=== PATIENT | female | born 1940 | race Caucasian/White ===

== ENCOUNTER 2018-06-25 07:32 | Emergency (ER) | payer MEDICARE ==
[~2018-06-25] VITALS: Ht 160 cm; Wt 54.4 kg
[2018-06-25 07:40] VITALS: BP_SYST 140
[2018-06-25] MEDS ORDERED: FLUT16SP16 NS (08:00)
[2018-06-25] MEDS ORDERED: ASA81 PO (08:07)
[2018-06-25] MEDS ORDERED: HYDR200T38 PO (08:07)
[2018-06-25] MEDS ORDERED: ALBMDI INH (08:07)
[2018-06-25] MEDS ORDERED: TEMA15CA5 PO (08:07)
[2018-06-25] MEDS ORDERED: AMLO2.5T2 PO (08:07)
[2018-06-25] MEDS ORDERED: LOSA100T3 PO (08:07)
[2018-06-25] MEDS ORDERED: LORA-259 PO (08:07)
[2018-06-25] MEDS ORDERED: ATOR20TA64 PO (08:07)
[2018-06-25] MEDS ORDERED: AZIT250T PO (08:07)
== END 2018-06-25 08:45 | disposition home or self-care (01) ==
LOC: SED 07:32
DX: J40 Bronchitis, not specified as acute or chronic (principal); Z79.899 Other long term (current) drug therapy
CPT/HCPCS: 71045; 99283

== ENCOUNTER 2018-06-27 20:37 | Emergency (ER) | payer MEDICARE ==
[~2018-06-27] VITALS: Ht 165.1 cm; Wt 54.4 kg
[~2018-06-27 20:37] MED LIST: ALBMDI INH; AMLO2.5T2 PO; ASA81 PO; ATOR20TA64 PO; AZIT250T PO; FLUT16SP16 NS; HYDR200T38 PO; LORA-259 PO; LOSA100T3 PO; TEMA15CA5 PO
[2018-06-27 20:46] VITALS: BP_SYST 130
[2018-06-27] MEDS ORDERED: MORPHINE 2 MG/ML INJ. SYRINGE IVP ONE (21:15)
[2018-06-27] MEDS ORDERED: ONDANSETRON HCL 4 MG/2 ML VIAL IVP ONE (21:15)
[2018-06-27] MEDS ORDERED: NACL 0.9% 1,000 ML IV ONE (21:15)
[2018-06-27 22:00] LABS: BASOPHILS % (AUTO) 0.5 % (0.0-2.0); EOSINOPHILS # (AUTO) 0.1 K/uL (0.0-0.4); EOSINOPHILS % (AUTO) 0.9 % (0.0-4.0); HEMATOCRIT 41.3 % (36-48); HEMOGLOBIN 13.9 g/dL (12.0-16.0); LYMPHOCYTES # (AUTO) 0.8 K/uL (1.0-5.5); LYMPHOCYTES % (AUTO) 9.9 % (20.5-51.5); MEAN CORPUSCULAR HEMOGLOBIN 32 pg (27-31); MEAN CORPUSCULAR HGB CONC 34 % (32-36); MEAN CORPUSCULAR VOLUME 95 fL (79.0-98.0); MONOCYTES # (AUTO) 0.9 K/uL (0.0-1.0); MONOCYTES % (AUTO) 11.3 % (1.7-9.3); NEUTROPHILS # (AUTO) 5.9 K/uL (1.8-7.7); NEUTROPHILS % (AUTO) 77.4 % (40.0-70.0); PLATELET COUNT (AUTO) 202 K/uL (130-430); RED BLOOD CELL COUNT(AUTO) 4.34 MIL/uL (4.2-6.2); RED CELL DISTRIBUTION WIDTH 12.5 % (9.0-15.0); WHITE BLOOD COUNT (AUTO) 7.7 K/uL (4.8-10.8)
[2018-06-27 22:09] LABS: ANION GAP 5 (5-15); CHLORIDE 103 mmol/L (98-107); CREATININE 0.88 mg/dL (0.55-1.30); GLUCOSE 119 mg/dL (70-99); POTASSIUM 4.7 mmol/L (3.5-5.1); SODIUM SERUM 138 mmol/L (136-145); UREA NITROGEN, BLOOD 23 mg/dL (8-21)
[2018-06-27 22:15] LABS: ALANINE AMINOTRANSFERASE 28 U/L (12-78); ALBUMIN 3.4 g/dL (3.4-4.8); ASPARTATE AMINOTRANSFERASE 18 U/L (10-37); TOTAL BILIRUBIN 0.3 mg/dL (0.0-1.0)
[2018-06-27 22:21] LABS: CALCIUM 8.9 mg/dL (8.4-11.0)
[2018-06-27 23:04] LABS: BILIRUBIN,URINE NEGATIVE (NEGATIVE); BLOOD, URINE TRACE (NEGATIVE); CLARITY/URINE CLEAR (CLEAR); COLOR,URINE YELLOW (YELLOW); GLUCOSE,URINE NEGATIVE (NEGATIVE); KETONES,URINE NEGATIVE (NEGATIVE); LEUKOCYTE ESTERASE ,URINE TRACE (NEGATIVE); NITRITE, URINE NEGATIVE (NEGATIVE); PROTEIN URINE NEGATIVE (NEGATIVE); UROBILINOGEN,URINE 0.2 (0.2-1.0)
[2018-06-27 23:09] LABS: BACTERIA,URINE FEW /HPF (None Seen); RBC,URINE 0-3 /HPF (0-3); WBC,URINE 0-3 /HPF (0-3)
[2018-06-28 00:10] VITALS: BP_SYST 130
== END 2018-06-28 00:10 | disposition home or self-care (01) ==
LOC: SED 20:37
DX: K52.9 Noninfective gastroenteritis and colitis, unspecified (principal); J40 Bronchitis, not specified as acute or chronic; J31.0 Chronic rhinitis; R11.2 Nausea with vomiting, unspecified; R42 Dizziness and giddiness; R03.0 Elevated blood-pressure reading, without diagnosis of hypertension; Z79.82 Long term (current) use of aspirin; Z79.899 Other long term (current) drug therapy
CPT/HCPCS: 36415; 74176; 80053; 81000; 83605; 85025; 87040; 96361; 96374; 96375; 99285; J2270; J2405; J7030

== ENCOUNTER 2019-09-12 13:21 | Emergency (ER) | payer MEDICARE ==
[~2019-09-12] VITALS: Ht 160 cm; Wt 49.9 kg
[2019-09-12 13:21] VITALS: BP_SYST 136
--- NOTE | 2019-09-12 13:21 | NUR ---
Placed in room 1 . Placed on monitor technician, blood pressure machine and pulse oximeter. To gown for exam. Side rails up. Report given to CHERYLE Raphael.
--- NOTE | 2019-09-12 13:25 | NUR ---
STEVEN Camilo at bedside examining patient.
[2019-09-12] MEDS ORDERED: NACL 0.9% 1,000 ML IV ONE (13:30)
[2019-09-12 13:59] LABS: BASOPHILS % (AUTO) 0.5 % (0.0-2.0); EOSINOPHILS # (AUTO) 0.1 K/uL (0.0-0.4); EOSINOPHILS % (AUTO) 2.1 % (0.0-4.0); HEMATOCRIT 38.6 % (36-48); HEMOGLOBIN 12.8 g/dL (12.0-16.0); LYMPHOCYTES # (AUTO) 0.9 K/uL (1.0-5.5); LYMPHOCYTES % (AUTO) 15.8 % (20.5-51.5); MEAN CORPUSCULAR HEMOGLOBIN 31 pg (27-31); MEAN CORPUSCULAR HGB CONC 33 % (32-36); MEAN CORPUSCULAR VOLUME 92 fL (79.0-98.0); MONOCYTES # (AUTO) 0.5 K/uL (0.0-1.0); MONOCYTES % (AUTO) 8.4 % (1.7-9.3); NEUTROPHILS # (AUTO) 4.3 K/uL (1.8-7.7); NEUTROPHILS % (AUTO) 73.2 % (40.0-70.0); PLATELET COUNT (AUTO) 216 K/uL (130-430); RED BLOOD CELL COUNT(AUTO) 4.17 MIL/uL (4.2-6.2); RED CELL DISTRIBUTION WIDTH 13.1 % (9.0-15.0); WHITE BLOOD COUNT (AUTO) 5.8 K/uL (4.8-10.8)
[2019-09-12 14:02] LABS: ANION GAP 6 (5-15); CALCIUM 8.6 mg/dL (8.4-11.0); CHLORIDE 102 mmol/L (98-107); CREATININE 0.91 mg/dL (0.55-1.30); GLUCOSE 126 mg/dL (70-99); POTASSIUM 3.7 mmol/L (3.5-5.1); SODIUM SERUM 137 mmol/L (136-145); UREA NITROGEN, BLOOD 22 mg/dL (8-21)
--- NOTE | 2019-09-12 14:02 | NUR ---
Patient is awake, alert, and oriented x4. Patient states she was at [facility] today, felt dizzy, sat on some boxes and woke up on the floor. Patient states when she woke up 2 women were helping her up. She states she feels better now and denies any problems.
[2019-09-12 14:17] LABS: ALANINE AMINOTRANSFERASE 20 U/L (12-78); ALBUMIN 3.2 g/dL (3.4-4.8); ASPARTATE AMINOTRANSFERASE 16 U/L (10-37); THYROID STIMULATING HORMONE 4.18 uIu/mL (0.36-3.74); TOTAL BILIRUBIN 0.3 mg/dL (0.0-1.0)
--- NOTE | 2019-09-12 14:24 | NUR ---
Patient states she is unable to provide urine sample at this time.
--- NOTE | 2019-09-12 14:44 | NUR ---
Patient transported to radiology via gurney, accompanied by machine tool technician instructor.
--- NOTE | 2019-09-12 14:45 | NUR ---
Returned from radiology, back to [facility].
[2019-09-12 15:48] LABS: BILIRUBIN,URINE NEGATIVE (NEGATIVE); BLOOD, URINE NEGATIVE (NEGATIVE); CLARITY/URINE CLEAR (CLEAR); COLOR,URINE YELLOW (YELLOW); GLUCOSE,URINE NEGATIVE (NEGATIVE); KETONES,URINE NEGATIVE (NEGATIVE); LEUKOCYTE ESTERASE ,URINE NEGATIVE (NEGATIVE); NITRITE, URINE NEGATIVE (NEGATIVE); PROTEIN URINE NEGATIVE (NEGATIVE); UROBILINOGEN,URINE 0.2 (0.2-1.0)
[2019-09-12 16:54] VITALS: BP_SYST 134
== END 2019-09-12 16:54 | disposition home or self-care (01) ==
LOC: SED 13:21
DX: R55 Syncope and collapse (principal); E02 Subclinical iodine-deficiency hypothyroidism; J44.9 Chronic obstructive pulmonary disease, unspecified; M54.10 Radiculopathy, site unspecified; Z79.899 Other long term (current) drug therapy; Z79.82 Long term (current) use of aspirin
CPT/HCPCS: 36415; 70450; 71045; 80053; 81003; 83605; 84439; 84443; 84484; 85025; 87040; 87086; 93005; 93880; 96360; 99284; J7030

== ENCOUNTER 2019-11-20 11:19 | Emergency (ER) | payer MEDICARE ==
[~2019-11-20] VITALS: Ht 160 cm; Wt 49.9 kg
[2019-11-20 11:36] VITALS: BP_SYST 158
--- NOTE | 2019-11-20 11:53 | NUR ---
Patient to ER bed 3 to gown for evaluation. Side rails up. Report given to CHERYLE BERRY.
[2019-11-20 12:10] LABS: BILIRUBIN,URINE 1+ (NEGATIVE); BLOOD, URINE 1+ (NEGATIVE); CLARITY/URINE CLEAR (CLEAR); COLOR,URINE ORANGE (YELLOW); GLUCOSE,URINE TRACE (NEGATIVE); KETONES,URINE TRACE (NEGATIVE); LEUKOCYTE ESTERASE ,URINE 3+ (NEGATIVE); NITRITE, URINE POSITIVE (NEGATIVE); PH,URINE 5.5 (5.0-8.0); PROTEIN URINE 2+ (NEGATIVE); UROBILINOGEN,URINE >=8 (0.2-1.0)
[2019-11-20 12:13] LABS: BACTERIA,URINE MODERATE /HPF (None Seen); WBC,URINE >100 /HPF (0-3)
[2019-11-20] MEDS ORDERED: cefTRIAXone 1 GM in LIDOCAINE 1%, 20 ML MDV 2.1 ML IM ONE (12:15)
--- NOTE | 2019-11-20 12:20 | NUR ---
PATIENT PRESENTS TO THE ER WITH DYSURIA FOR 24 HOURS; NO TRAUMA, NO OTHER REMARKABLE S/S
--- NOTE | 2019-11-20 12:24 | NUR ---
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
[2019-11-20 12:44] LABS: BASOPHILS # (AUTO) 0.1 K/uL (0.0-0.2); BASOPHILS % (AUTO) 0.7 % (0.0-2.0); EOSINOPHILS % (AUTO) 0.1 % (0.0-4.0); HEMATOCRIT 39.3 % (36-48); HEMOGLOBIN 12.9 g/dL (12.0-16.0); LYMPHOCYTES # (AUTO) 0.7 K/uL (1.0-5.5); LYMPHOCYTES % (AUTO) 4.9 % (20.5-51.5); MEAN CORPUSCULAR HEMOGLOBIN 29 pg (27-31); MEAN CORPUSCULAR HGB CONC 33 % (32-36); MEAN CORPUSCULAR VOLUME 89 fL (79.0-98.0); MONOCYTES % (AUTO) 6.5 % (1.7-9.3); NEUTROPHILS # (AUTO) 13.3 K/uL (1.8-7.7); NEUTROPHILS % (AUTO) 87.8 % (40.0-70.0); PLATELET COUNT (AUTO) 372 K/uL (130-430); RED CELL DISTRIBUTION WIDTH 14.1 % (9.0-15.0); WHITE BLOOD COUNT (AUTO) 15.2 K/uL (4.8-10.8)
[2019-11-20 12:56] LABS: ANION GAP 8 (5-15); CALCIUM 8.7 mg/dL (8.4-11.0); CHLORIDE 98 mmol/L (98-107); CREATININE 0.78 mg/dL (0.55-1.30); GLUCOSE 106 mg/dL (70-99); INR 1.1 (0.8-1.2); POTASSIUM 3.7 mmol/L (3.5-5.1); PROTHROMBIN TIME 10.9 SECS (9.5-12.5); SODIUM SERUM 132 mmol/L (136-145); UREA NITROGEN, BLOOD 16 mg/dL (8-21)
[2019-11-20 13:10] LABS: ALANINE AMINOTRANSFERASE 27 U/L (12-78); ALBUMIN 3.1 g/dL (3.4-4.8); AMYLASE 55 U/L (0-100); ASPARTATE AMINOTRANSFERASE 13 U/L (10-37); LACTATE DEHYDROGENASE 166 U/L (81-234); LIPASE 122 U/L (73-393); TOTAL BILIRUBIN 0.4 mg/dL (0.0-1.0)
[2019-11-20 13:29] VITALS: BP_SYST 149
--- NOTE | 2019-11-20 13:31 | NUR ---
PATIENT OPTED TO LEAVE ER AMA; ADVISED OF RISKS/BENEFITS AD ACCEPTS; SIGNED AND GIVEN PRESCRIPTION BY ERMD; AMBULATORY; IMPROVED
== END 2019-11-20 13:29 | disposition left against medical advice (07) ==
LOC: SED 11:19
DX: K57.92 Diverticulitis of intestine, part unspecified, without perforation or abscess without bleeding (principal); N39.0 Urinary tract infection, site not specified; J44.9 Chronic obstructive pulmonary disease, unspecified; I10 Essential (primary) hypertension; Z90.710 Acquired absence of both cervix and uterus; Z79.82 Long term (current) use of aspirin; Z79.899 Other long term (current) drug therapy
CPT/HCPCS: 36415; 74176; 80053; 81000; 82150; 83605; 83615; 83690; 84703; 85025; 85610; 85730; 87086; 96372; 99284; J0696; J2001; 87186-TC

== ENCOUNTER 2020-01-10 13:53 | Emergency (ER) | payer MEDICARE ==
[~2020-01-10] VITALS: Ht 160 cm; Wt 47.6 kg
[2020-01-10 14:06] VITALS: BP_SYST 178
[2020-01-10 19:57] VITALS: BP_SYST 114
== END 2020-01-10 19:57 | disposition home or self-care (01) ==
LOC: SED 13:53
DX: S02.31XA Fracture of orbital floor, right side, initial encounter for closed fracture (principal); S02.40CA Maxillary fracture, right side, initial encounter for closed fracture; S00.83XA Contusion of other part of head, initial encounter; S46.811A Strain of other muscles, fascia and tendons at shoulder and upper arm level, right arm, initial encounter; J44.9 Chronic obstructive pulmonary disease, unspecified; I10 Essential (primary) hypertension; K57.90 Diverticulosis of intestine, part unspecified, without perforation or abscess without bleeding; Z79.82 Long term (current) use of aspirin; Z79.899 Other long term (current) drug therapy; W01.0XXA Fall on same level from slipping, tripping and stumbling without subsequent striking against object, initial encounter; Y93.89 Activity, other specified; Y92.89 Other specified places as the place of occurrence of the external cause; Y99.8 Other external cause status
CPT/HCPCS: 70450-TC; 70486-TC; 73030; 99285

== ENCOUNTER 2020-01-16 08:11 | Emergency (ER) | payer MEDICARE ==
[~2020-01-16] VITALS: Ht 160 cm; Wt 46.3 kg
[2020-01-16] MEDS ORDERED: NACL 0.9% 1,000 ML IV ONE (08:35)
[2020-01-16] MEDS ORDERED: HYDR200T80 PO (08:35)
[2020-01-16 08:36] VITALS: BP_SYST 184
[2020-01-16] MEDS ORDERED: ONDANSETRON HCL 4 MG/2 ML VIAL IVP ONE ×2 (08:45→09:45)
[2020-01-16] MEDS ORDERED: MORPHINE 4 MG/ML INJ. SYRINGE IVP ONE ×3 (08:45→11:45)
[2020-01-16 09:17] LABS: BASOPHILS % (AUTO) 0.3 % (0.0-2.0); EOSINOPHILS % (AUTO) 0.2 % (0.0-4.0); HEMOGLOBIN 12.6 g/dL (12.0-16.0); LYMPHOCYTES # (AUTO) 0.6 K/uL (1.0-5.5); LYMPHOCYTES % (AUTO) 4.2 % (20.5-51.5); MEAN CORPUSCULAR HEMOGLOBIN 30 pg (27-31); MEAN CORPUSCULAR HGB CONC 32 % (32-36); MEAN CORPUSCULAR VOLUME 91 fL (79.0-98.0); MONOCYTES # (AUTO) 1.1 K/uL (0.0-1.0); MONOCYTES % (AUTO) 8.4 % (1.7-9.3); NEUTROPHILS # (AUTO) 11.5 K/uL (1.8-7.7); NEUTROPHILS % (AUTO) 86.9 % (40.0-70.0); PLATELET COUNT (AUTO) 256 K/uL (130-430); RED BLOOD CELL COUNT(AUTO) 4.28 MIL/uL (4.2-6.2); RED CELL DISTRIBUTION WIDTH 17.1 % (9.0-15.0); WHITE BLOOD COUNT (AUTO) 13.2 K/uL (4.8-10.8)
[2020-01-16 09:30] LABS: PROTHROMBIN TIME 10.1 SECS (9.5-12.5)
[2020-01-16 09:38] LABS: ANION GAP 9 (5-15); CALCIUM 8.7 mg/dL (8.4-11.0); CHLORIDE 100 mmol/L (98-107); CREATININE 0.89 mg/dL (0.55-1.30); GLUCOSE 119 mg/dL (70-99); POTASSIUM 3.7 mmol/L (3.5-5.1); SODIUM SERUM 135 mmol/L (136-145); UREA NITROGEN, BLOOD 18 mg/dL (8-21)
[2020-01-16 09:43] LABS: ALANINE AMINOTRANSFERASE 33 U/L (12-78); ALBUMIN 3.1 g/dL (3.4-4.8); AMYLASE 50 U/L (0-100); ASPARTATE AMINOTRANSFERASE 21 U/L (10-37); LIPASE 68 U/L (73-393); TOTAL BILIRUBIN 0.6 mg/dL (0.0-1.0)
[2020-01-16] MEDS ORDERED: metroNIDAZOLE 500 mg/NS 100 ML IV ONE (09:45)
[2020-01-16] MEDS ORDERED: CIPROFLOXACIN LACT 400 MG/D5W 200 ML IV SCH (09:45)
[2020-01-16] MEDS ORDERED: CIPROFLOXACIN LACT 400 MG/D5W 200 ML IV ONE (10:00)
[2020-01-16] MEDS ORDERED: AMOXICILLIN/CLAVULANATE POTASSIUM 500 MG TABLET PO ONE (10:30)
[2020-01-16 12:50] VITALS: BP_SYST 164
== END 2020-01-16 12:50 | disposition short-term general hospital (02) ==
LOC: SED 08:11
DX: K57.92 Diverticulitis of intestine, part unspecified, without perforation or abscess without bleeding (principal); K56.41 Fecal impaction; K80.20 Calculus of gallbladder without cholecystitis without obstruction; I10 Essential (primary) hypertension; J44.9 Chronic obstructive pulmonary disease, unspecified; Z88.1 Allergy status to other antibiotic agents; Z79.899 Other long term (current) drug therapy
CPT/HCPCS: 36415; 71045; 74176; 80053; 82150; 82272; 83605; 83690; 83880; 84484; 85025; 85610; 85730; 87040; 93005; 96365; 96375; 96376; 99285; J0744; J2270; J2405; J3490; J7030

== ENCOUNTER 2021-04-05 01:31 | Emergency (ER) | payer MEDICARE ==
[~2021-04-05] VITALS: Ht 157.5 cm; Wt 54.4 kg
[~2021-04-05 01:31] MED LIST changes: -AZIT250T PO; +HYDR200T80 PO; +ZIT250 PO
[2021-04-05 01:42] VITALS: BP_SYST 220
[2021-04-05 02:51] VITALS: BP_SYST 146
== END 2021-04-05 02:51 | disposition home or self-care (01) ==
LOC: SED 01:31
DX: S61.511A Laceration without foreign body of right wrist, initial encounter (principal); S00.83XA Contusion of other part of head, initial encounter; M25.551 Pain in right hip; I10 Essential (primary) hypertension; J44.9 Chronic obstructive pulmonary disease, unspecified; Z88.1 Allergy status to other antibiotic agents; Z79.899 Other long term (current) drug therapy; W18.39XA Other fall on same level, initial encounter; Y93.89 Activity, other specified; Y92.89 Other specified places as the place of occurrence of the external cause; Y99.8 Other external cause status
CPT/HCPCS: 99283

== ENCOUNTER 2023-04-24 00:54 | Emergency (ER) | payer MEDICARE ==
[~2023-04-24 00:54] MED LIST changes: -LOSA100T3 PO; +LOSA100T4 PO
[2023-04-24 01:00] VITALS: BP_SYST 140; PULSE 90; RESP 20; O2SAT 92
[2023-04-24] MEDS ORDERED: ONDANSETRON HCL 4 MG/2 ML VIAL IVP ONE ×2 (01:15→04:30)
[2023-04-24] MEDS ORDERED: KETOROLAC TROMETHAMINE 30 MG VIAL IVP ONE (01:15)
[2023-04-24] MEDS ORDERED: NACL 0.9% 1,000 ML IV ONE (01:15)
[2023-04-24 01:29] LABS: BASOPHILS % (AUTO) 0.3 % (0.0-2.0); EOSINOPHILS # (AUTO) 0.2 K/uL (0.0-0.4); HEMATOCRIT 44.5 % (36-48); HEMOGLOBIN 14.8 g/dL (12.0-16.0); LYMPHOCYTES # (AUTO) 0.9 K/uL (1.0-5.5); LYMPHOCYTES % (AUTO) 7.6 % (20.5-51.5); MEAN CORPUSCULAR HEMOGLOBIN 31 pg (27-31); MEAN CORPUSCULAR HGB CONC 33 % (32-36); MEAN CORPUSCULAR VOLUME 95 fL (79.0-98.0); MONOCYTES # (AUTO) 0.5 K/uL (0.0-1.0); MONOCYTES % (AUTO) 4.4 % (1.7-9.3); NEUTROPHILS # (AUTO) 9.7 K/uL (1.8-7.7); NEUTROPHILS % (AUTO) 85.7 % (40.0-70.0); PLATELET COUNT (AUTO) 175 K/uL (130-430); RED BLOOD CELL COUNT(AUTO) 4.71 MIL/uL (4.2-6.2); RED CELL DISTRIBUTION WIDTH 13.6 % (9.0-15.0); WHITE BLOOD COUNT (AUTO) 11.3 K/uL (4.8-10.8)
[2023-04-24 01:49] LABS: ALANINE AMINOTRANSFERASE 19 U/L (12-78); ALBUMIN 3.8 g/dL (3.4-4.8); ANION GAP 10 (5-15); ASPARTATE AMINOTRANSFERASE 22 U/L (10-37); CALCIUM 8.9 mg/dL (8.4-11.0); CHLORIDE 106 mmol/L (98-107); CREATININE 0.87 mg/dL (0.55-1.30); GLUCOSE 165 mg/dL (74-106); LIPASE 86 U/L (73-393); TOTAL BILIRUBIN 0.4 mg/dL (0.0-1.0); UREA NITROGEN, BLOOD 26 mg/dL (8-21)
[2023-04-24] MEDS ORDERED: PIPERACILLIN/TAZO 3.375 GM in NS 50 ML IV ONE (03:15)
[2023-04-24] MEDS ORDERED: PIPERACILLIN/TAZOBACTAM 3.375 GM/VIAL (ZOSYN) IV ONE (03:40)
[2023-04-24] MEDS ORDERED: IPRATROPIUM BROM 0.5 MG/2.5 ML VIAL.NEB (ATROVENT) INH ONE (04:00)
[2023-04-24] MEDS ORDERED: ALBUTEROL SULFATE 0.083% 2.5 MG/3 ML VIAL.NEB INH ONE (04:00)
[2023-04-24] MEDS ORDERED: MORPHINE 2 MG/ML INJ. SYRINGE IVP ONE (04:30)
[2023-04-24] MEDS ORDERED: LORazepam 2 MG/ML VIAL IVP ONE (04:30)
[2023-04-24 05:41] VITALS: BP_SYST 143; PULSE 111; RESP 23; TEMP 97.7; O2SAT 93
== END 2023-04-24 05:52 | disposition short-term general hospital (02) ==
LOC: SED 00:54
DX: K56.609 Unspecified intestinal obstruction, unspecified as to partial versus complete obstruction (principal); E86.0 Dehydration; J44.9 Chronic obstructive pulmonary disease, unspecified; R10.9 Unspecified abdominal pain; I10 Essential (primary) hypertension; Z88.1 Allergy status to other antibiotic agents; Z79.899 Other long term (current) drug therapy; Z20.822 Contact with and (suspected) exposure to COVID-19
CPT/HCPCS: 99285; 74176; 96365; 96375; 71045; 96361; 87426; 80053; 83690; 85025; 87040; 36415; 93005; 76376; 94640; 96376; 83605; J1885; J2405; J2543; J2270; J7030